=== PATIENT | male | born 2000 | race Two or more races ===

== ENCOUNTER 2024-03-01 12:24 | Emergency (ER) | payer OTHER ==
[~2024-03-01] VITALS: Ht 175.3 cm; Wt 95.5 kg
[2024-03-01 12:27] VITALS: BP 125/77; PULSE 68; RESP 18; TEMP 98.4; O2SAT 98
[2024-03-01 12:50] LABS: COVID AG,FIA SOURCE NASAL SWAB
[2024-03-01 13:17] LABS: SARS-COV2 (COVID) ANTIGEN,FIA Negative (Negative)
[2024-03-01 13:18] LABS: INFLUENZA TYPE A NEGATIVE FOR TYPE A (NEGATIVE); INFLUENZA TYPE B NEGATIVE FOR TYPE B (NEGATIVE)
== END 2024-03-01 13:57 | disposition left against medical advice (07) ==
LOC: EMS 12:24
DX: R07.9 Chest pain, unspecified (principal); R05.9 Cough, unspecified; Z20.822 Contact with and (suspected) exposure to COVID-19
CPT/HCPCS: 87804; 93005